=== PATIENT | male | born 1965 | race Caucasian/White ===

== ENCOUNTER → 2023-10-03 08:12 | Outpatient (REF) | payer BC, SELFPAY | LOC: RAD 08:12 | PROVIDERS: ATTENDING PHYSICIAN Physician Assistant | DX: R22.31 Localized swelling, mass and lump, right upper limb (principal) | CPT/HCPCS: 76604 ==

== ENCOUNTER 2023-11-28 07:42 | Emergency (ER) | payer BC, SELFPAY ==
[2023-11-28 07:48] VITALS: BP 163/90
--- NOTE | 2023-11-28 08:21 | ED.GENMED ---
History of Present Illness
General
Chief Complaint: Chest Pain
Source: patient
Exam Limitations: none
Time Seen by Provider: 11/28/23 08:06
History of Present Illness
History of Present Illness:
58-year-old otherwise healthy male presents complaining of 4 days worth of left-sided chest pain. The pain is sharp stabbing in nature sometimes hurts to breathe. He denies shortness of breath. Denies cough or fever. He denies associated nausea
or diaphoresis. This started shortly after performing an upper body workout. This workout has been done without difficulty in the past. He does note a flight at the end of October to [place] and back. And in the interim had COVID. No leg swelling
or calf pain. He was seen by the family doctor yesterday and thought to have costochondritis and was prescribed muscle relaxer and ibuprofen. This did not help. No other complaints at this time
Past History
Past History
ED Past Medical History: None
ED Past Surgical History: Appendectomy and Orthopedic
Social History
Tobacco: Non-smoker
Alcohol: Occasional
Drug: None
Personal:
Living: with family
Employment: Employed
Family History
Family History: Other (Noncontributory)
Phy Exam
Physical Exam
Physical Exam:
General: Well-appearing male no acute respiratory distress
HEENT: Normocephalic atraumatic
Heart: Regular rate and rhythm no murmurs or rubs
Lungs: Clear breath sounds heard throughout
Abdomen is soft nontender nondistended
Extremities: No cyanosis or edema
Skin warm no rash
Scores
Heart Score for Chest Pain Patients
STEMI patient?: No
History: Slightly or Non-Suspicious
ECG: Normal
Age: >45 - <65 years
Risk Factors: No Risk Factors
Troponin: </= Normal Limit
Heart Score for Chest Pain Patients: 1
Heart Score Risk: 2.5% MACE over next 6 weeks
Course
Orders/Labs/Results
Orders:
Orders
11/28/23 07:44
Electrocardiogram (*1) Urgent
Reason for Study: Chest Pain
EKG- Treatment ONCE
11/28/23 08:21
CR Chest - 2 Views Urgent
Comment:
Reason For Exam: chest pain
11/28/23 08:44
CRP [C-Reactive Protein] Urgent
11/28/23 09:35
Complete Blood Count/With Diff Urgent
Comprehensive Metabolic Panel Urgent
D-Dimer Urgent
Erythrocyte Sed Rate Urgent
Troponin I Urgent
11/28/23 11:18
Ketorolac [Toradol] 15 mg IV NOW STA
11/28/23 11:20
Ketorolac [Toradol] 15 mg IV NOW STA
Abnormal Lab Results
11/28/23
09:35
WBC 3.5 L 10^3/uL
(4.8-10.8)
Monocytes % 10.8 H %
(1.7-9.3)
Glucose 104 H mg/dl
(70-99)
11/28/23 09:35
11/28/23 09:35
Vital Signs
Initial and Last Documented VS:
Initial Vital Signs
Temp Pulse Resp BP Pulse Ox
98.4 F 69 20 163/90 99
11/28/23 07:48 11/28/23 07:48 11/28/23 07:48 11/28/23 07:48 11/28/23 07:48
Last Documented Vital Signs
Temp Pulse Resp BP Pulse Ox
98.4 F 61 14 135/95 97
11/28/23 07:48 11/28/23 11:15 11/28/23 11:15 11/28/23 10:00 11/28/23 11:15
MDM/Problems Addressed
Differential Diagnosis Includes:
Left-sided chest pain. Consider muscular strain versus chest wall discomfort versus ACS or PE. Patient does endorse travel recently. D-dimer will be ordered. Will order troponin and chest x-ray as well. EKG through triage shows sinus rhythm
without ischemic changes. Pain is pleuritic in nature pain is also made worse with patient laying flat. He seems to be better in a sitting up position.
*Critical Care Note
Total Time (30-74mins, 75-104mins- exclusive of procedures): Not Applicable
Update Note
Update Note:
D-dimer undetectable. Troponin normal. Chest x-ray clear. Patient's pain is reproducible. Question poss viral related secondary to recent COVID illness. Sed rate is normal as well. I suspect musculoskeletal/chest wall comfort. Toradol ordered
here will prescribe several days of prednisone. Stable for discharge with follow-up
ED Attending Note
-
Portions of this chart may have been created with voice recognition software.� Occasional wrong word or��sound alike� substitutions may have occurred due to the inherent limitations of voice recognition software.
Discharge Plan
Departure
Patient Disposition: Home (Routine Discharge)
Date of Disposition: 11/28/23
Time of Disposition: 11:28
Patient with high blood pressure during this ER visit?: No
Discharge Problem:
Acute chest wall pain
Instructions: Chest Pain That Is Not Caused by the Heart (DC)
Prescriptions:
New
prednisone 20 mg tablet
40 mg PO DAILY 5 Days Qty: 10 0RF
No Action
valacyclovir 1,000 MG tablet
1,000 mg PO TID
dicyclomine 10 MG capsule
10 mg PO QIDPRN PRN (Reason: abdominal pain) Qty: 14 0RF
Referrals:
Russel Leigh MD [Family Provider] -
Activity Restrictions/Additional Instructions:
Continue with anti-inflammatories. Avoid heavy lifting or twisting activities. Return if worse otherwise follow-up with your family doctor
Interventions
Interventions:
*General Assessment Last Done: 11/28/23 11:18
*Neglect/Abuse Screening Last Done: 11/28/23 11:18
*ED COVID-19 Vaccine History Last Done: 11/28/23 11:18
Discharge Date and Time
Print Language: GERMAN
[2023-11-28 08:50] VITALS: BP 141/92
[2023-11-28 09:36] VITALS: BP 137/95
[2023-11-28 09:46] LABS: % Basophils 1.1 % (0-2); % Eosinophils 1.7 % (0-6); % Lymphocytes 36.5 % (20.5-51.1); % Monocytes 10.8 % (1.7-9.3); % Neutrophils 49.9 % (42.2-75.2); Absolute Eosinophils 0.1 10^3/uL (0-0.7); Absolute Lymphocytes 1.3 10^3/uL (1.2-3.4); Absolute Monocytes 0.4 10^3/uL (0.1-0.6); Absolute Neutrophils 1.8 10^3/uL (1.4-6.5); Hematocrit 42.8 % (39.0-52.0); Hemoglobin 14.6 g/dL (13.0-18.0); Mean Corp Hgb Conc. 34.1 g/dL (33.0-37.0); Mean Corpuscular Hgb 30.8 pg (27.0-31.0); Mean Corpuscular Volume 90.3 fL (80.0-94.0); Mean Platelet Volume 10.2 fL (7.4-10.4); Nucleated Red Blood Cells % 0 % (-); Platelet Count 177 10^3/uL (130-400); Red Blood Cell Count 4.74 10^6/uL (4.70-6.10); Red Cell Dist. Width 12.5 % (11.5-14.5); White Blood Cell Count 3.5 10^3/uL (4.8-10.8)
[2023-11-28 10:00] VITALS: BP 135/95
[2023-11-28 10:10] LABS: D-Dimer < 0.27 ug/mlFEU (0.00-0.50)
[2023-11-28 10:15] LABS: Troponin I < 0.012 ng/ml
[2023-11-28 10:35] LABS: ALT (SGPT) 33 U/L (0-50); AST (SGOT) 27 U/L (17-59); Albumin 4.1 g/dl (3.5-5.0); Alkaline Phosphatase 59 U/L (38-126); Blood Urea Nitrogen 17 mg/dl (9-20); Calcium 8.9 mg/dl (8.4-10.2); Carbon Dioxide 25 mmol/L (22-30); Chloride 105 mmol/L (98-107); Glucose 104 mg/dl (70-99); Potassium 4.6 mmol/L (3.5-5.1); Sodium 138 mmol/L (135-145); Total Bilirubin 0.7 mg/dl (0.2-1.3); Total Protein 6.5 g/dl (6.3-8.2); eGFR > 60.00
[2023-11-28 11:09] LABS: Erythrocyte Sed Rate 9 mm/hour (0-20)
[2023-11-28 11:24] VITALS: BP 130/82
[2023-11-28] MEDS: TORADOL 15 MG IV (11:27)
[2023-11-28 13:50] LABS: C-Reactive Protein < 5.00 mg/L (0.0-10.00)
== END 2023-11-28 11:41 | disposition home or self-care (01) ==
LOC: EMR 07:42
PROVIDERS: Physician Assistant; EMERGENCY PHYSICIAN Emergency Medicine; FAMILY PHYSICIAN Family Medicine
DX: R07.89 Other chest pain (principal); Z86.16 Personal history of COVID-19
CPT/HCPCS: 99284; 96374; 71046; 80053; 84484; 85025; 85379; 85652; 86140; 93005

== ENCOUNTER → 2024-03-21 08:48 | Outpatient (REF) | payer BC, SELFPAY | LOC: RCS 08:48 | PROVIDERS: ATTENDING PHYSICIAN Physician Assistant; OTHER PHYSICIAN Internal Medicine Cardiovascular Disease; REFERRING PHYSICIAN Family Medicine | DX: R01.1 Cardiac murmur, unspecified (principal) | CPT/HCPCS: 93306 ==

== ENCOUNTER → 2024-04-04 13:24 | Outpatient (REF) | payer BC, SELFPAY | LOC: RAD 13:24 | PROVIDERS: ATTENDING PHYSICIAN Physician Assistant; FAMILY PHYSICIAN Family Medicine; OTHER PHYSICIAN Internal Medicine Cardiovascular Disease; REFERRING PHYSICIAN Family Medicine | DX: E78.00 Pure hypercholesterolemia, unspecified (principal); I25.10 Atherosclerotic heart disease of native coronary artery without angina pectoris | CPT/HCPCS: 93880 ==

== ENCOUNTER → 2024-07-17 12:25 | Outpatient (REF) | payer BC, SELFPAY | LOC: HWRAD 12:25 | PROVIDERS: ATTENDING PHYSICIAN Internal Medicine; REFERRING PHYSICIAN Family Medicine | DX: E04.1 Nontoxic single thyroid nodule (principal) | CPT/HCPCS: 76536 ==

== ENCOUNTER → 2024-11-21 07:34 | Outpatient (REF) | payer OTHER, SELFPAY | LOC: RAD 07:34 | PROVIDERS: ATTENDING PHYSICIAN Internal Medicine | DX: M72.2 Plantar fascial fibromatosis (principal) | CPT/HCPCS: 73630 ==